=== PATIENT | male | born 1990 | race African-American/Black ===

== ENCOUNTER 2017-05-15 22:05 | Emergency (ER) | payer BC, OTHER ==
[2017-05-15] MEDS ORDERED: Adacel (T-DAP) 0.5 ML VIAL ONE (22:20)
== END 2017-05-15 22:40 ==
LOC: SCSER 22:05
DX: S01.112A Laceration without foreign body of left eyelid and periocular area, initial encounter (principal); W51.XXXA Accidental striking against or bumped into by another person, initial encounter; Y93.67 Activity, basketball; Y92.149 Unspecified place in prison as the place of occurrence of the external cause
CPT/HCPCS: 12011; 90471; 90715

== ENCOUNTER 2017-07-21 15:35 | Emergency (ER) | payer BC, OTHER ==
[2017-07-21] MEDS ORDERED: Lidocaine 1% PF 5 ML VIAL ONE (15:46)
== END 2017-07-21 16:18 | disposition home or self-care (01) ==
LOC: SCSER 15:35
DX: S01.511A Laceration without foreign body of lip, initial encounter (principal); W03.XXXA Other fall on same level due to collision with another person, initial encounter; Y93.67 Activity, basketball; Y99.8 Other external cause status
CPT/HCPCS: 12011; J2001